=== PATIENT | female | born 1940 | race Caucasian/White ===

== ENCOUNTER 2017-08-02 09:51 | Day surgery (SDC) | payer MEDICARE, OTHER ==
[~2017-08-02] VITALS: Ht 167.6 cm; Wt 90.9 kg
[2017-08-02] MEDS ORDERED: COZAAR100 MG PO (10:24)
[2017-08-02] MEDS ORDERED: NORVASC10 MG PO (10:24)
[2017-08-02] MEDS ORDERED: CELEXA40 MG PO (10:24)
[2017-08-02] MEDS ORDERED: DYAZIDE 37.5/251 CAP PO (10:25)
[2017-08-02] MEDS ORDERED: PROTONIX40 MG PO (10:25)
[2017-08-02] MEDS ORDERED: XALATAN 0.0052.5 ML EACH EYE (10:26)
[2017-08-02] MEDS ORDERED: PRAVASTATIN SOD10 MG PO (10:26)
[2017-08-02] MEDS ORDERED: LEVOTHYROXINE100 MCG PO (10:27)
[2017-08-02] MEDS ORDERED: BYSTOLIC5 MG PO (10:28)
[2017-08-02 10:29] VITALS: BP 139/57; Ht 167.6 cm; Wt 90.9 kg
[2017-08-02 10:51] LABS: BASOPHILS 0.3 % (0-2); HEMATOCRIT 35.4 % (36.0-48.0); HEMOGLOBIN 11.7 g/dL (12-16); IMMATURE GRANULOCYTES 0.3 % (0-5); LYMPHOCYTES 17.9 % (15-50); MCH 30.8 pg (26.0-34.0); MCHC 33.1 g/dL (31.0-37.0); MCV 93.2 fL (80.0-100.0); MEAN PLATELET VOLUME 10.3 fL (7.4-10.4); MONOCYTES 13.1 % (2-11); NEUTROPHILS 63.4 % (40-80); PLATELET COUNT 199 10x3/uL (130-400); RDW 12.9 % (11.5-14.5); WBC 5.8 10x3/uL (4.8-10.8)
[2017-08-02 11:05] LABS: ANION GAP 14.4 mmol/L (8-16); CALCIUM 9.2 mg/dL (8.5-10.1); CARBON DIOXIDE 26.3 mmol/L (21.0-32.0); POTASSIUM - SERUM 5.7 mmol/L (3.5-5.1)
--- NOTE | 2017-08-02 12:42 | NUR ---
BALLOON DILATION TO 60.
--- NOTE | 2017-08-02 12:48 | NUR ---
SAVORY DILATION DONE.
--- NOTE | 2017-08-15 18:56 | OP ---
PATIENT NAME: MILTON JIMENEZ MEDICAL RECORD: [id number] :40 LOCATION:[facility] ADMISSION DATE: SURGEON: BRADLEY GARCIA MD DATE OF OPERATION: 08/02/2017 PROCEDURE: EGD with Savary and with esophageal dilatation. REFERRING PHYSICIAN: Chava Gloria MD INDICATIONS: Ms. Jimenez is a delightful 76-year-old woman with a history of dysphagia. She had an EGD on 06/13/2017 with finding showing gastric polyps, erosive gastritis, duodenal diverticulum, moderate to large hiatal hernia and esophageal ring that was dilated up to 60-Nauruan with a balloon dilator. She has had persistent dysphagia despite esophageal balloon dilatation. A barium swallow on 07/06/2017 showed luminal narrowing and tortuosity in the distal esophagus, delayed emptying of the esophagus and a moderate size hiatal hernia. She presents for outpatient EGD with repeat dilatation. PREMEDICATIONS: Total IV anesthesia (propofol 300 mg). INSTRUMENT: Olympus video gastroscope, a 54-Nauruan Savary dilator and esophageal balloon dilator. PROCEDURE AND FINDINGS: After receiving informed consent, Ms. Jimenez' posterior pharynx was anesthetized with Cetacaine spray. She was placed in left lateral decubitus position and sedated as per anesthesia. After achieving adequate level of sedation, gastroscope was introduced per orally and advanced into the duodenum. Beginning in the mid and extending to the distal esophagus, she had a corkscrew esophagus like a spiral staircase extending to the GE junction, which was located approximately 37 cm. At the GE junction was a partial nonobstructing ring. There also appeared to be some increased tension at the lower esophageal sphincter, but with gentle pressure of the gastroscope tip, the GE junction opened up. A moderate to large hiatal hernia was present. There was patchy erythema in the antrum. There were no lesions seen in the stomach. There was no erythema in the body, cardia or fundus of the stomach. Pylorus was patent and competent. In the second portion of duodenum was a large diverticulum, had a small amount of retained old food. Otherwise, the proximal duodenal mucosa was without erythema or ulcers. The gastroscope was then withdrawn into the stomach. The guidewire was introduced through the gastroscope and then the gastroscope was withdrawn. Over the guidewire, an attempt at passage of a 54-Nauruan Savary dilator was performed, but the dilator did not advance easily and that procedure was terminated. Repeat endoscopy was then done and the GE junction was dilated with a stepwise balloon dilator from 54 to 60-Nauruan and held in place on the appropriate PSI for 60 seconds at the 60-Nauruan size and then deflated. Biopsies were then taken from the distal third of the esophagus. The gastroscope was then withdrawn. Ms. Jimenez tolerated the procedure well, no immediate complications. ASSESSMENT: 1. 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 Secondary to the mid to distal esophageal anatomy, Savary dilation not possible. 2. Moderate to large hiatal hernia. 3. Mild gastritis. OPERATIVE REPORT [id number] MILTON JIMENEZ 4. Duodenal diverticulum. RECOMMENDATIONS: 1. Follow up histopathology. 2. Soft diet. TRANSINT:[id number] Voice Confirmation ID: [id number] DOCUMENT ID: [id number] BRADLEY GARCIA MD at 1856 CC: CHAVA GLORIA MD [id number] DICTATION DATE: 08/02/17 1252 [facility] SCIENTIST: 08/02/17 1505 [facility] 08/02/17 [place] [id number] [place] [address]
== END 2017-08-02 13:50 | disposition home or self-care (01) ==
LOC: D.OPS 09:51
PROVIDERS: Internal Medicine Gastroenterology
DX: K20.8 Other esophagitis (principal); K22.2 Esophageal obstruction; K44.9 Diaphragmatic hernia without obstruction or gangrene; K29.70 Gastritis, unspecified, without bleeding; Z01.812 Encounter for preprocedural laboratory examination